=== PATIENT | female | born 1955 | race African-American/Black ===

== ENCOUNTER 2024-04-03 15:23 | Emergency (ER) | payer MEDICARE, MEDICAID ==
[~2024-04-03] VITALS: Ht 162.6 cm; Wt 56.7 kg
[~2024-04-03 15:23] MED LIST: AMLO10TA80 PO; ASPI-1160 PO; COR12 PO; FURO-151 MT; HYDR50TA39 PO; ISOS60TA76 PO; LIP40 PO
[2024-04-03 15:31] VITALS: O2SAT 99
[2024-04-03 17:04] LABS: BASOPHILS % 1.6 % (0.0-2.0); EOSINOPHILS % 3.1 % (0.0-5.0); HEMATOCRIT. 28.8 % (36.0-48.0); HEMOGLOBIN. 9.4 g/dL (12.0-16.0); LYMPHOCYTES % 34.8 % (20.0-50.0); MEAN CORPUSCULAR HEMOGLOBIN 30.9 pg (28.0-32.0); MEAN CORPUSCULAR HGB CONC 32.8 g/dL (31.0-37.0); MEAN CORPUSCULAR VOLUME 94.2 fL (81.0-99.0); NEUTROPHILS % 48.5 % (40.0-76.0); PLATELET 472 x1000/uL (130-400); RED BLOOD CELL COUNT 3.06 mill/uL (4.2-5.4); RED CELL DISTRIBUTION WIDTH 14.9 % (11.6-14.6); WHITE BLOOD COUNT 5.8 x1000/uL (4.5-11.0)
[2024-04-03 17:11] LABS: CHLORIDE 111 mEq/L (98-107); POTASSIUM 5.3 mEq/L (3.5-5.1); SODIUM 137 mEq/L (136-145)
[2024-04-03 17:12] LABS: CALCIUM 9.1 mg/dL (8.7-10.4); CARBON DIOXIDE 19 mEq/L (21-32)
[2024-04-03 17:17] LABS: CREATININE 2.5 mg/dL (0.6-1.0); GLUCOSE 113 mg/dL (70-105); UREA NITROGEN BLOOD 40 mg/dL (9-23)
[2024-04-03 17:18] LABS: TROPONIN I HIGH SENSITIVITY 33 ng/L (3.0-34)
[2024-04-04] MEDS ORDERED: SODI454P4 PO (00:41)
[2024-04-04 01:56] VITALS: BP 134/65; PULSE 85; RESP 20; TEMP 37.05852; O2SAT 99
== END 2024-04-04 01:45 | disposition home or self-care (01) ==
LOC: ER 15:23
DX: I80.9 Phlebitis and thrombophlebitis of unspecified site (principal); E87.5 Hyperkalemia; N18.9 Chronic kidney disease, unspecified; I50.9 Heart failure, unspecified; I13.0 Hypertensive heart and chronic kidney disease with heart failure and stage 1 through stage 4 chronic kidney disease, or unspecified chronic kidney disease; E78.00 Pure hypercholesterolemia, unspecified; Z79.82 Long term (current) use of aspirin; Z79.899 Other long term (current) drug therapy
CPT/HCPCS: 36415; 71045; 80048; 84484; 85025; 93005; 93971; 99285

== ENCOUNTER → 2024-05-12 | Outpatient (CLI) | payer MEDICARE, MEDICAID ==
[~2024-05-12] MED LIST changes: +SODI454P4 PO
== END | disposition home or self-care (01) ==
LOC: RAD 07:30
PROVIDERS: ATTEND Internal Medicine Critical Care Medicine
DX: R06.02 Shortness of breath (principal)
CPT/HCPCS: 71046

== ENCOUNTER 2024-09-06 11:31 | Emergency (ER) | payer MEDICARE, MEDICAID ==
[~2024-09-06] VITALS: Ht 162.6 cm; Wt 58.0 kg
[2024-09-06 11:53] VITALS: TEMP 36.9; O2SAT 98
[2024-09-06] MEDS ORDERED: ACET-2708 MT (13:36)
[2024-09-06] MEDS: KETOROLAC 30MG/ML VIAL IM ONE (15:06)
[2024-09-06 15:12] VITALS: BP 159/91; PULSE 77; RESP 18; O2SAT 100
== END 2024-09-06 15:10 | disposition home or self-care (01) ==
LOC: ER 11:31
DX: M79.602 Pain in left arm (principal); I10 Essential (primary) hypertension; Z79.82 Long term (current) use of aspirin; Z79.899 Other long term (current) drug therapy
CPT/HCPCS: 99284; 72170; 73060; 73562; 96372; J1885; A6449

== ENCOUNTER → 2024-12-15 | Outpatient (CLI) | payer MEDICARE, MEDICAID ==
[~2024-12-15] MED LIST changes: +ACET-2708 MT; -FURO-151 MT; +LEVO750T68 MT; +METR-167 MT
== END | disposition home or self-care (01) ==
LOC: RAD 10:22
PROVIDERS: ATTEND Internal Medicine Critical Care Medicine
DX: J90 Pleural effusion, not elsewhere classified (principal)
CPT/HCPCS: 71046